=== PATIENT | male | born 1960 ===

== ENCOUNTER → 2020-05-19 | Outpatient (CLI) | payer BC, OTHER ==
[~2020-05-19] MED LIST: HYDROCHLOROTH12.5 MG PO; LISI30TA4 PO; REGADENOSON 0.4 MG/5 ML SYRINGE ONE; ROSU5TAB PO
== END | disposition home or self-care (01) ==
LOC: CFH 08:21
PROVIDERS: ATTEND Registered Nurse
DX: I42.9 Cardiomyopathy, unspecified (principal); R06.02 Shortness of breath
CPT/HCPCS: 78452; 93017; A9502; J2785